=== PATIENT | male | born 1980 | race Caucasian/White ===

== ENCOUNTER 2018-04-27 17:39 | Inpatient (IN) | payer MEDICARE, MEDICAID ==
[~2018-04-27] VITALS: Ht 182.9 cm; Wt 94.2 kg
[~2018-04-27 17:39] MED LIST: GABA300C10 PO; TRAM50TA2 PO; TRAZ-136 PO
[2018-04-27] MEDS ORDERED: SODIUM CHLORIDE 0.9% 1,000ML IVBOLUS ONE ×2 (18:30→20:30)
[2018-04-27] MEDS ORDERED: MORPHINE SULFATE 4 MG/ML, 1ML IVPush PRN (18:30)
[2018-04-27] MEDS ORDERED: MORPHINE SULFATE 4 MG/ML, 1ML ONE (18:32)
[2018-04-27] MEDS ORDERED: BUPIVACAINE/PF-EPI 0.5% 1:200K INFIL STA (18:41)
[2018-04-27] MEDS ORDERED: LIDOCAINE 1%-EPI 1:100K, 20ML SQ ONE (19:00)
[2018-04-27] MEDS ORDERED: LIDOCAINE 1%-EPI 1:100K, 30ML ONE (19:24)
[2018-04-27] MEDS ORDERED: LIDOCAINE-MPF 2% ,5ML ONE (19:24)
[2018-04-27] MEDS ORDERED: BUPIVACAINE 0.25% ONE (19:24)
[2018-04-27 19:25] LABS: MEAN CORPUSCULAR HEMOGLOBIN 31.2 pg (27.5-34.5); MEAN CORPUSCULAR HGB CONC 34.8 g/dL (33.2-36.2); MEAN CORPUSCULAR VOLUME 89.8 fL (81-97); MEAN PLATELET VOLUME 9.2 fL (7.4-10.4); PLATELET COUNT 177 x10^3/uL (130-400); RED BLOOD COUNT 4.32 x10^6/uL (4.38-5.82); RED CELL DISTRIBUTION WIDTH 13.4 % (9.4-14.8)
[2018-04-27 19:26] LABS: HCT (SEDRATE) 38.8 % (39.2-51.8)
[2018-04-27 19:36] LABS: ALBUMIN 2.7 g/dL (3.4-5.0); ANION GAP 10 mmol/L (5-15); CALCIUM 8.5 mg/dL (8.5-10.1); CHLORIDE 98 mmol/L (98-107); CREATININE 1.26 mg/dL (0.7-1.3)
[2018-04-27 19:45] LABS: C-REACTIVE PROTEIN, QUANT > 19.00 mg/dL (0.02-0.49)
[2018-04-27 19:48] LABS: MD YES
[2018-04-27 19:51] LABS: BANDS%(MANUAL) 8 % (0-7); LYMPHS% (MANUAL) 5 % (22-44); METAMYELOCYTES% (MANUAL) 2 % (0-1); MONOS% (MANUAL) 3 % (2-9); MYELOCYTES% (MANUAL) 1 % (0-0); SEGS% (MANUAL) 82 % (42-75)
[2018-04-27 19:52] LABS: <PLATELET ESTIMATE> ADEQUATE; <PLT MORPHOLOGY> NORMAL PLT MORPH; <RBC MORPHOLOGY> NORMAL; TOXIC GRAN 1+
[2018-04-27] MEDS ORDERED: VANCOMYCIN PER PHARMACY MC PRN ×2 (20:30→21:00)
[2018-04-27] MEDS ORDERED: PIPERACILLIN/TAZO/PMX 3.375GM 50 ML IV ONE (20:30)
[2018-04-27] MEDS ORDERED: VANCOMYCIN 1,400 MG in SODIUM CHLORIDE 0.9% 250 ML IV ONE (20:30)
[2018-04-27] MEDS ORDERED: PIPERACILLIN/TAZO/PMX 3.375GM 50 ML ONE (20:41)
[2018-04-27] MEDS ORDERED: POLYETHYLENE GLYCOL 17 GM PACKET PO PRN (21:00)
[2018-04-27] MEDS ORDERED: ONDANSETRON 2MG/ML, 2ML IVPush PRN (21:00)
[2018-04-27] MEDS ORDERED: BISACODYL 10 MG SUPP PR PRN (21:00)
[2018-04-27] MEDS ORDERED: ACETAMINOPHEN 325 MG TABLET PO PRN (21:00)
[2018-04-27] MEDS ORDERED: LIDOCAINE-MPF 2% ,5ML INFIL ONE (21:30)
[2018-04-27] MEDS ORDERED: BUPIVACAINE 0.25% INFIL ONE (21:30)
[2018-04-27] MEDS ORDERED: FENTANYL PF 250 MCG/5ML ONE (21:38)
[2018-04-27] MEDS ORDERED: PROPOFOL 10 MG/ML, 20ML ONE (22:03)
[2018-04-27] MEDS ORDERED: GLYCOPYRROLATE 0.2MG/1ML, 5ML ONE (22:03)
[2018-04-27] MEDS ORDERED: SUCCINYLCHOLINE 20 MG/ML, 10ML ONE (22:03)
[2018-04-27] MEDS ORDERED: NEOSTIGMINE 1 MG/ML, 10ML ONE (22:03)
[2018-04-27] MEDS ORDERED: ROCURONIUM 10 MG/ML,10ML ONE (22:03)
[2018-04-27] MEDS ORDERED: KETAMINE 10 MG/ML, 20ML ONE (22:03)
[2018-04-27] MEDS ORDERED: FENTANYL PF 100 MCG/2ML ONE (22:57)
[2018-04-27] MEDS ORDERED: ACETAMINOPHEN 650 MG/20.3 ML UDC ONE (22:57)
[2018-04-27] MEDS ORDERED: OXYcodone 5 MG/5 ML ORAL.SOL UDC ONE (22:58)
[2018-04-27] MEDS ORDERED: HYDROmorphone 2 MG/ML, 1ML ONE (22:58)
[2018-04-27] MEDS ORDERED: HALOPERIDOL 5 MG/ML ONE (22:58)
[2018-04-27] MEDS ORDERED: MIDAZOLAM 1 MG/ML, 2ML ONE (22:58)
[2018-04-27] MEDS: KETOROLAC 30 MG/1 ML IM SCH (23:00)
[2018-04-27] MEDS ORDERED: OXYcodone/APAP 5/325MG TABLET PO PRN (23:00)
[2018-04-27] MEDS ORDERED: PROMETHAZINE 25 MG/ML, 1ML IV PRN (23:00)
[2018-04-27] MEDS ORDERED: morphine SULFATE 10 MG/ML, 1ML IVPush PRN (23:00)
[2018-04-27] MEDS ORDERED: ALBUTEROL SULFATE 2.5 MG/3 ML NPPB PRN (23:00)
[2018-04-27] MEDS ORDERED: OXYcodone 5 MG/5 ML ORAL.SOL UDC PO PRN (23:00)
[2018-04-27] MEDS ORDERED: LORazepam 2 MG/ML, 1ML IVPush PRN (23:00)
[2018-04-27] MEDS ORDERED: HALOPERIDOL 5 MG/ML IV PRN (23:00)
[2018-04-27] MEDS: HYDROmorphone 1 MG/ML, 1ML IV PRN ×2 (23:01→23:08)
[2018-04-27] MEDS: FENTANYL PF 100 MCG/2ML IV PRN ×2 (23:02→23:17)
[2018-04-27] MEDS ORDERED: KETOROLAC 30 MG/1 ML ONE (23:04)
[2018-04-27] MEDS ORDERED: DIPHENHYDRAMINE 50 MG/ML, 1ML ONE (23:08)
[2018-04-27] MEDS ORDERED: DIPHENHYDRAMINE 50 MG/ML, 1ML IVPush PRN (23:30)
[2018-04-27 23:39] VITALS: BP 124/77
[2018-04-27] MEDS: HEPARIN 5,000 UNITS/ML, 1ML SQ SCH (23:58)
[2018-04-27] MEDS: NS + 20MEQ KCL 1,000 ML IV SCH (23:58)
[2018-04-27] MEDS: NICOTINE 14MG/24 HR PATCH.TD24 TD SCH (23:58)
[2018-04-28] MEDS ORDERED: PHARMACOKINETIC CONSULTATION MC ONE (00:30)
[2018-04-28] MEDS ORDERED: PHARMACOKINETIC MONITORING MC PRN (00:30)
[2018-04-28 00:41] LABS: BASOPHILS % (AUTO) 0 % (0-1); EOSINOPHILS # (AUTO) 0.07 x10^3/uL (0-0.4); EOSINOPHILS % (AUTO) 0 % (1-7); LYMPHOCYTES # (AUTO) 0.64 x10^3/uL (1-3.4); LYMPHOCYTES % (AUTO) 4 % (22-44); MD NO; MEAN CORPUSCULAR HEMOGLOBIN 31.2 pg (27.5-34.5); MEAN CORPUSCULAR HGB CONC 34.6 g/dL (33.2-36.2); MEAN CORPUSCULAR VOLUME 90.1 fL (81-97); MEAN PLATELET VOLUME 8.8 fL (7.4-10.4); MONOCYTES # (AUTO) 1.11 x10^3/uL (0.2-0.8); MONOCYTES % (AUTO) 7 % (2-9); NEUTROPHILS # (AUTO) 13.99 x10^3/uL (1.8-6.8); NEUTROPHILS % (AUTO) 88 % (42-75); PLATELET COUNT 153 x10^3/uL (130-400); RED BLOOD COUNT 3.87 x10^6/uL (4.38-5.82); RED CELL DISTRIBUTION WIDTH 13.5 % (9.4-14.8)
[2018-04-28 00:51] LABS: ALANINE AMINOTRANSFERASE 8 U/L (12-78); ALBUMIN 2.2 g/dL (3.4-5.0); ANION GAP 7 mmol/L (5-15); CALCIUM 7.8 mg/dL (8.5-10.1); CHLORIDE 104 mmol/L (98-107); CREATININE 0.89 mg/dL (0.7-1.3)
[2018-04-28 00:53] LABS: ALKALINE PHOSPHATASE 114 U/L (45-117); BILIRUBIN,TOTAL 0.9 mg/dL (0.2-1.0); TOTAL PROTEIN 6.4 g/dL (6.4-8.2)
[2018-04-28 01:09] VITALS: BP 124/77
[2018-04-28 02:42] VITALS: BP 119/71
[2018-04-28] MEDS: PIPERACILLIN/TAZO/PMX 3.375GM 50 ML IV SCH ×3 (03:22→13:39)
[2018-04-28 07:02] VITALS: BP 107/66
[2018-04-28] MEDS: KETOROLAC 30 MG/1 ML IM SCH ×2 (08:54→15:00)
[2018-04-28] MEDS: HEPARIN 5,000 UNITS/ML, 1ML SQ SCH ×3 (08:55→23:01)
[2018-04-28] MEDS: SENNA/DOCUSATE TABLET PO SCH (09:00)
[2018-04-28] MEDS: NS + 20MEQ KCL 1,000 ML IV SCH ×2 (09:05→21:08)
[2018-04-28] MEDS ORDERED: OXYC10TA6 PO (09:18)
[2018-04-28] MEDS: VANCOMYCIN 1,700 MG in SODIUM CHLORIDE 0.9% 250 ML IV SCH ×2 (10:21→21:09)
[2018-04-28 13:34] VITALS: BP 109/66
[2018-04-28] MEDS: OXYcodone IR 5MG TABLET PO PRN (13:39)
[2018-04-28] MEDS: morphine SULFATE 10 MG/ML, 1ML IVPush PRN ×2 (16:54→21:09)
[2018-04-28 20:03] VITALS: BP 102/60
[2018-04-28] MEDS: NICOTINE 14MG/24 HR PATCH.TD24 TD SCH (23:00)
[2018-04-29] MEDS: morphine SULFATE 10 MG/ML, 1ML IVPush PRN ×6 (01:13→22:27)
[2018-04-29 02:59] VITALS: BP 120/69
[2018-04-29] MEDS: OXYcodone IR 5MG TABLET PO PRN ×2 (04:31→13:58)
[2018-04-29 05:33] LABS: BASOPHILS # (AUTO) 0.05 x10^3/uL (0-0.1); BASOPHILS % (AUTO) 1 % (0-1); EOSINOPHILS # (AUTO) 0.11 x10^3/uL (0-0.4); EOSINOPHILS % (AUTO) 1 % (1-7); LYMPHOCYTES # (AUTO) 0.95 x10^3/uL (1-3.4); LYMPHOCYTES % (AUTO) 10 % (22-44); MD NO; MEAN CORPUSCULAR HEMOGLOBIN 30.9 pg (27.5-34.5); MEAN CORPUSCULAR HGB CONC 34.1 g/dL (33.2-36.2); MEAN CORPUSCULAR VOLUME 90.7 fL (81-97); MEAN PLATELET VOLUME 9.2 fL (7.4-10.4); MONOCYTES % (AUTO) 9 % (2-9); NEUTROPHILS # (AUTO) 7.96 x10^3/uL (1.8-6.8); NEUTROPHILS % (AUTO) 80 % (42-75); PLATELET COUNT 180 x10^3/uL (130-400); RED BLOOD COUNT 3.47 x10^6/uL (4.38-5.82); RED CELL DISTRIBUTION WIDTH 13.8 % (9.4-14.8)
[2018-04-29 05:41] LABS: CHLORIDE 107 mmol/L (98-107)
[2018-04-29 05:46] LABS: ANION GAP 7 mmol/L (5-15); CALCIUM 7.8 mg/dL (8.5-10.1); CREATININE 0.83 mg/dL (0.7-1.3)
[2018-04-29 06:58] VITALS: BP 124/72
[2018-04-29] MEDS: HEPARIN 5,000 UNITS/ML, 1ML SQ SCH ×3 (07:00→16:06)
[2018-04-29] MEDS: NS + 20MEQ KCL 1,000 ML IV SCH (07:39)
[2018-04-29] MEDS: SENNA/DOCUSATE TABLET PO SCH (08:18)
[2018-04-29] MEDS: VANCOMYCIN 1,700 MG in SODIUM CHLORIDE 0.9% 250 ML IV SCH ×2 (10:30→22:28)
[2018-04-29 12:57] VITALS: BP 117/69
[2018-04-29] MEDS: CEFAZOLIN PMX 2GM/50ML 50 ML IVPB SCH (15:44)
[2018-04-29] MEDS: NICOTINE 14MG/24 HR PATCH.TD24 TD SCH ×2 (16:00→16:17)
[2018-04-29 19:22] VITALS: BP 126/76
[2018-04-29] MEDS ORDERED: MORPHINE SULFATE 4 MG/ML, 1ML ONE ×2 (19:30→22:22)
[2018-04-30] MEDS: HEPARIN 5,000 UNITS/ML, 1ML SQ SCH ×3 (00:30→08:09)
[2018-04-30] MEDS: CEFAZOLIN PMX 2GM/50ML 50 ML IVPB SCH ×3 (00:30→17:01)
[2018-04-30] MEDS: OXYcodone IR 5MG TABLET PO PRN ×2 (00:44→08:03)
[2018-04-30 00:59] VITALS: BP 133/78
[2018-04-30] MEDS ORDERED: MORPHINE SULFATE 4 MG/ML, 1ML ONE ×2 (01:32→04:30)
[2018-04-30] MEDS: morphine SULFATE 10 MG/ML, 1ML IVPush PRN ×2 (01:37→04:33)
[2018-04-30 07:01] VITALS: BP 123/77
[2018-04-30] MEDS: SENNA/DOCUSATE TABLET PO SCH (08:10)
[2018-04-30] MEDS: DOCUSATE 100 MG CAPSULE PO SCH (09:00)
[2018-04-30] MEDS: ENOXAPARIN 40 MG/0.4 ML SQ SCH (09:42)
[2018-04-30] MEDS: VANCOMYCIN 1,700 MG in SODIUM CHLORIDE 0.9% 250 ML IV SCH (10:11)
[2018-04-30 13:22] VITALS: BP 125/79
[2018-04-30] MEDS: OXYcodone/APAP 5/325MG TABLET PO PRN ×2 (14:25→21:01)
[2018-04-30] MEDS: NICOTINE 14MG/24 HR PATCH.TD24 TD SCH (17:01)
[2018-04-30 19:14] VITALS: BP 131/87
[2018-05-01] MEDS: CEFAZOLIN PMX 2GM/50ML 50 ML IVPB SCH ×3 (00:19→16:37)
[2018-05-01 00:21] VITALS: BP 109/73
[2018-05-01] MEDS: OXYcodone/APAP 5/325MG TABLET PO PRN ×4 (03:03→21:28)
[2018-05-01 05:31] LABS: BASOPHILS # (AUTO) 0.06 x10^3/uL (0-0.1); BASOPHILS % (AUTO) 1 % (0-1); EOSINOPHILS # (AUTO) 0.33 x10^3/uL (0-0.4); EOSINOPHILS % (AUTO) 4 % (1-7); LYMPHOCYTES % (AUTO) 17 % (22-44); MD NO; MEAN CORPUSCULAR HEMOGLOBIN 30.9 pg (27.5-34.5); MEAN CORPUSCULAR HGB CONC 34.1 g/dL (33.2-36.2); MEAN CORPUSCULAR VOLUME 90.6 fL (81-97); MEAN PLATELET VOLUME 8.8 fL (7.4-10.4); MONOCYTES # (AUTO) 0.72 x10^3/uL (0.2-0.8); MONOCYTES % (AUTO) 9 % (2-9); NEUTROPHILS # (AUTO) 5.32 x10^3/uL (1.8-6.8); NEUTROPHILS % (AUTO) 69 % (42-75); PLATELET COUNT 305 x10^3/uL (130-400); RED BLOOD COUNT 3.89 x10^6/uL (4.38-5.82); RED CELL DISTRIBUTION WIDTH 13.5 % (9.4-14.8)
[2018-05-01 05:40] LABS: ANION GAP 8 mmol/L (5-15); CALCIUM 8.6 mg/dL (8.5-10.1); CHLORIDE 102 mmol/L (98-107); CREATININE 0.96 mg/dL (0.7-1.3)
[2018-05-01 06:48] VITALS: BP 134/90
[2018-05-01] MEDS: SENNA/DOCUSATE TABLET PO SCH (07:55)
[2018-05-01] MEDS: DOCUSATE 100 MG CAPSULE PO SCH (07:56)
[2018-05-01] MEDS: ENOXAPARIN 40 MG/0.4 ML SQ SCH (07:58)
[2018-05-01 12:13] VITALS: BP 121/86
[2018-05-01] MEDS: morphine SULFATE 10 MG/ML, 1ML IVPush PRN (14:46)
[2018-05-01] MEDS: NICOTINE 14MG/24 HR PATCH.TD24 TD SCH (16:37)
[2018-05-01 18:59] VITALS: BP 117/77
[2018-05-02] MEDS: CEFAZOLIN PMX 2GM/50ML 50 ML IVPB SCH ×3 (01:07→17:22)
[2018-05-02 02:25] VITALS: BP 128/88
[2018-05-02] MEDS: OXYcodone/APAP 5/325MG TABLET PO PRN ×2 (03:48→14:28)
[2018-05-02 07:24] VITALS: BP 130/89
[2018-05-02] MEDS: SENNA/DOCUSATE TABLET PO SCH (09:00)
[2018-05-02] MEDS: DOCUSATE 100 MG CAPSULE PO SCH (09:00)
[2018-05-02] MEDS: ENOXAPARIN 40 MG/0.4 ML SQ SCH (09:41)
[2018-05-02 12:09] LABS: AMPHETAMINE SCREEN, URINE Negative (Negative); BARBITURATE SCREEN, URINE Negative (Negative); BENZODIAZEPINE SCREEN, URINE Negative (Negative); CANNABINOID SCREEN, URINE Positive (Negative); COCAINE SCREEN, URINE Negative (Negative); METHADONE SCREEN, URINE Negative (Negative); OPIATE SCREEN, URINE Positive (Negative)
[2018-05-02 14:55] VITALS: BP 123/81
[2018-05-02] MEDS ORDERED: DOCU-131 PO (15:09)
[2018-05-02] MEDS ORDERED: NICO-486 TD (15:09)
[2018-05-02] MEDS ORDERED: CEFA2PIG7 IVPB (15:09)
[2018-05-02] MEDS: NICOTINE 14MG/24 HR PATCH.TD24 TD SCH (17:21)
== END 2018-05-02 18:23 | DRG 853 ==
LOC: OR 20:18 → EDIP 20:20 → 4EST 23:26
PROVIDERS: ADMIT Hospitalist; ATTEND Hospitalist
PROC: 0S9D0ZZ Drainage of Left Knee Joint, Open Approach (ICD-10-PCS; 2018-04-27)
PROC: 0S9D3ZZ Drainage of Left Knee Joint, Percutaneous Approach (ICD-10-PCS; 2018-04-27)
PROC: 0S9G3ZZ Drainage of Left Ankle Joint, Percutaneous Approach (ICD-10-PCS; principal; 2018-04-27 22:25)
DX: A41.02 Sepsis due to Methicillin resistant Staphylococcus aureus (principal); E43 Unspecified severe protein-calorie malnutrition; M00.9 Pyogenic arthritis, unspecified; E87.1 Hypo-osmolality and hyponatremia; J90 Pleural effusion, not elsewhere classified; L03.113 Cellulitis of right upper limb; L03.114 Cellulitis of left upper limb; M25.462 Effusion, left knee; D64.9 Anemia, unspecified; E87.5 Hyperkalemia; F12.90 Cannabis use, unspecified, uncomplicated; F15.10 Other stimulant abuse, uncomplicated; F17.210 Nicotine dependence, cigarettes, uncomplicated; R65.20 Severe sepsis without septic shock; Z68.28 Body mass index [BMI] 28.0-28.9, adult
CPT/HCPCS: 20610; 36415; 80048; 80053; 80202; 80307; 82040; 83605; 85025; 85651; 85810; 86140; 87040; 87070; 87075; 87077; 87147; 87181; 87186; 87205; 89050; 89060; 93005; 93306; 96374; 96375; 99291; J0690; J1170; J1644; J1650; J1885; J2543; J2704; J2710; J3010; J3370; J3480; J3490; J0330; J1200; J1630; J2270; J7030; J7050